=== PATIENT | female | born 1965 | race Caucasian/White ===

== ENCOUNTER → 2017-02-10 | Outpatient (CLI) | payer OTHER ==
[~2017-02-10] VITALS: Ht 160 cm; Wt 79.8 kg
[~2017-02-10] MED LIST: ABILIFY2 MG PO; CYMBALTA60 MG PO; DESYREL100 MG PO; FLEXERIL5 MG PO; IMURAN50 MG PO; INDERAL10 MG PO; LO-DOSE ASPIRIN81 M2 PO; NUVIGIL250 MG PO; OMEPRAZOLE40 M1 PO; PROZAC20 MG PO; ULTRAM ER200 MG PO; WELLBUTRIN XL300 MG PO
== END | disposition home or self-care (01) ==
LOC: AMB 08:56
DX: D12.5 Benign neoplasm of sigmoid colon (principal); Z86.010 Personal history of colon polyps; R10.13 Epigastric pain; R19.7 Diarrhea, unspecified; M79.7 Fibromyalgia; L93.0 Discoid lupus erythematosus; Z79.82 Long term (current) use of aspirin; Z86.73 Personal history of transient ischemic attack (TIA), and cerebral infarction without residual deficits
CPT/HCPCS: 88305; J2250; J3010

== ENCOUNTER 2017-12-04 14:47 | Emergency (ER) | payer BC ==
[~2017-12-04] VITALS: Ht 157.5 cm; Wt 84.2 kg
[2017-12-04 15:49] LABS: HEMATOCRIT 32.6 % (36.0-46.0); HEMOGLOBIN 11.1 G/DL (11.9-15.5); MCH 32.2 PG (29.0-34.0); MCV 94.5 FL (83-99); PLATELET COUNT 221 K/uL (156-360); RBC DIS.WIDTH-CV 15.4 % (11.8-14.6); RBC DIS.WIDTH-SD 53.3 % (39-53); RED BLOOD COUNT 3.45 M/uL (3.80-5.20); WHITE BLOOD COUNT 8.4 K/uL (4.1-10.2)
[2017-12-04 15:59] LABS: CHLORIDE 105 mEq/L (99-109); POTASSIUM 3.9 mEq/L (3.7-5.4); SODIUM 141 mEq/L (136-147)
[2017-12-04 16:00] LABS: GLUCOSE 114 mg/dL (70-99)
[2017-12-04 16:04] LABS: CREATININE 0.7 mg/dL (0.6-1.3); GFR ESTIMATE (CALCULATED) > 59 mL/min/
[2017-12-04 16:05] LABS: UREA NITROGEN (BUN) 7 mg/dL (9-23)
[2017-12-04 16:10] LABS: TROP-I INTERPRETATION NEGATIVE; TROPONIN-I < 0.01 ng/mL (0.0-0.30)
[2017-12-04] MEDS ORDERED: ATIVAN1 MG PO (17:01)
[2017-12-04 19:40] VITALS: BP 134/74
== END 2017-12-04 20:05 | disposition home or self-care (01) ==
LOC: EME 14:47
DX: F41.9 Anxiety disorder, unspecified (principal); F43.9 Reaction to severe stress, unspecified; M32.9 Systemic lupus erythematosus, unspecified; Z87.442 Personal history of urinary calculi; Z85.828 Personal history of other malignant neoplasm of skin; Z90.49 Acquired absence of other specified parts of digestive tract; Z79.82 Long term (current) use of aspirin; Z88.1 Allergy status to other antibiotic agents
CPT/HCPCS: 71046; 80048; 84484; 85027; 90839; 93005; 99281; 99283